=== PATIENT | female | born 1960 | race Caucasian/White ===

== ENCOUNTER 2018-05-28 16:07 | Outpatient (REF) | payer MEDICAID, SELFPAY ==
[2018-05-28 20:15] LABS: Abs Immature Grans 0.03 k/cumm (0.0-0.09); Absolute Basophil Count 0.03 k/cumm (0.0-0.2); Absolute Eosinophil Count 0.09 k/cumm (0.0-0.7); Absolute Lymphocyte Count 1.38 k/cumm (1.2-3.4); Absolute Monocyte Count 0.61 k/cumm (0.11-0.7); Absolute Neutrophil Count 6.14 k/cumm (1.2-6.7); Basophils % 0.4; Eosinophils % 1.1; HCT 35.9 % (36.0-46.0); HGB 12.2 g/dL (12.0-15.5); Immature Grans % 0.4; Lymphocytes % 16.7; Mean Corpuscular Hemoglobin 28.8 pg (27.0-33.0); Mean Corpuscular Volume 84.9 fL (80-95); Mean Platelet Volume 9.4 fL (8.0-11.0); Monocytes % 7.4; Platelet Count 312 x1000/uL (130-400); RBC 4.23 m/cumm (4.00-5.20); RBC Distribution Width 15.4 % (11.7-14.6); White Blood Cell Count 8.28 k/cumm (4.4-10.8)
[2018-05-28 20:51] LABS: Anion Gap 8.3 mmol/L (3-11); BUN 4 mg/dL (7-18); CO2 29.7 mmol/L (21.0-32.0); CREATININE 0.61 mg/dL (0.55-1.02); Calcium 9.6 mg/dL (8.5-10.1); Chloride 93 mmol/L (98-107); Ferritin 108 ng/mL (8-388); Glucose 106 mg/dL (70-100); Potassium 3.9 mmol/L (3.5-5.1); Sodium 131 mmol/L (136-145)
== END 2018-05-28 16:27 ==
LOC: NCHCN 16:07
PROVIDERS: Visit Provider Family Medicine
DX: J44.1 Chronic obstructive pulmonary disease with (acute) exacerbation (principal); E87.1 Hypo-osmolality and hyponatremia; D64.9 Anemia, unspecified
CPT/HCPCS: 80048; 82728; 85025

== ENCOUNTER 2018-06-24 15:14 | Outpatient (REF) | payer MEDICAID, SELFPAY ==
--- NOTE | 2018-06-24 14:30 | PAPFT_PTH ---
PATIENT: YESI MATHEWS [facility] U#:[id number] AGE/SX: 57/F ROOM: RE06/24/[address]: Liliam Briseno : 1960 BED: DIS: 06/24/2018 SPEC #: [id number] RECD: 06/25/18 13:17 STATUS: YULISA REQ #: [id number] RAZIA: 06/24/18 14:[address]: Liliam Briseno DEPT: [facility] Cytology RECD BY: Patricia Laird ENTERED: 06/25/18 13:17 SP TYPE: PAPFT OTHR DR: Scott Carbone Tissues: 1 - CX/ENDOCX FOR PAP SMEARS Procedures: PAP THIN PREP/[facility] Screening HPV DNA PROBE Comments: [id number]
[2018-06-24 22:02] LABS: Anion Gap 9.7 mmol/L (3-11); BUN 4 mg/dL (7-18); CO2 30.3 mmol/L (21.0-32.0); CREATININE 0.68 mg/dL (0.55-1.02); Calcium 9.9 mg/dL (8.5-10.1); Chloride 91 mmol/L (98-107); Cholesterol 203 mg/dL (50-200); Glucose 95 mg/dL (70-100); HDL Cholesterol 86 mg/dL (40-60); LDL CHOLESTEROL 87 mg/dL (<100); Potassium 4.2 mmol/L (3.5-5.1); Sodium 131 mmol/L (136-145); Triglyceride 66 mg/dL (30-150)
== END 2018-06-24 15:34 ==
LOC: NCHCN 15:14
PROVIDERS: Visit Provider Registered Nurse
DX: E87.1 Hypo-osmolality and hyponatremia (principal); Z13.220 Encounter for screening for lipoid disorders; Z12.4 Encounter for screening for malignant neoplasm of cervix; Z11.51 Encounter for screening for human papillomavirus (HPV)
CPT/HCPCS: 80048; 80061; 83721; 88142; 87624

== ENCOUNTER 2018-07-23 12:55 | Outpatient (REF) | payer MEDICAID, SELFPAY ==
[2018-07-23 21:31] LABS: Anion Gap 8.6 mmol/L (3-11); BUN 3 mg/dL (7-18); CO2 29.4 mmol/L (21.0-32.0); CREATININE 0.58 mg/dL (0.55-1.02); Calcium 9.1 mg/dL (8.5-10.1); Chloride 93 mmol/L (98-107); Glucose 91 mg/dL (70-100); Potassium 3.6 mmol/L (3.5-5.1); Sodium 131 mmol/L (136-145)
== END 2018-07-23 13:15 ==
LOC: NCHCN 12:55
PROVIDERS: Visit Provider Registered Nurse
DX: E87.1 Hypo-osmolality and hyponatremia (principal)
CPT/HCPCS: 80048

== ENCOUNTER 2018-08-08 14:29 | Outpatient (REF) | payer MEDICAID, SELFPAY ==
[2018-08-08 21:14] LABS: Anion Gap 9.3 mmol/L (3-11); BUN 3 mg/dL (7-18); CO2 29.7 mmol/L (21.0-32.0); CREATININE 0.71 mg/dL (0.55-1.02); Calcium 9.2 mg/dL (8.5-10.1); Chloride 98 mmol/L (98-107); Glucose 104 mg/dL (70-100); Potassium 3.7 mmol/L (3.5-5.1); Sodium 137 mmol/L (136-145)
== END 2018-08-08 14:49 ==
LOC: NCHCN 14:29
PROVIDERS: Visit Provider Registered Nurse
DX: R60.0 Localized edema (principal)
CPT/HCPCS: 80048

== ENCOUNTER 2019-10-09 13:06 | Outpatient (REF) | payer MEDICAID, SELFPAY ==
[2019-10-09 20:46] LABS: ALT 19 U/L (14-59); AST 23 U/L (15-37); Albumin 2.8 g/dL (3.4-5.0); Alkaline Phosphatase 88 U/L (46-116); Anion Gap 10.5 mmol/L (3-11); BUN 3 mg/dL (7-18); Bilirubin, Total 0.4 mg/dL (0.2-1.0); CO2 26.5 mmol/L (21.0-32.0); CREATININE 0.72 mg/dL (0.55-1.02); Calcium 8.9 mg/dL (8.5-10.1); Chloride 97 mmol/L (98-107); Glucose 98 mg/dL (74-106); Potassium 4.1 mmol/L (3.5-5.1); Sodium 134 mmol/L (136-145); Total Protein 6.4 g/dL (6.4-8.2)
== END 2019-10-09 13:26 ==
LOC: NCHCN 13:06
PROVIDERS: PCP Registered Nurse; Visit Provider Registered Nurse
DX: I10 Essential (primary) hypertension (principal); E87.1 Hypo-osmolality and hyponatremia; E87.6 Hypokalemia
CPT/HCPCS: 80053

== ENCOUNTER 2019-10-16 20:47 | Outpatient (REF) | payer MEDICAID, SELFPAY ==
[2019-10-16 20:55] LABS: Anion Gap 6.2 mmol/L (3-11); BUN 6 mg/dL (7-18); CO2 30.8 mmol/L (21.0-32.0); CREATININE 0.69 mg/dL (0.55-1.02); Calcium 9.5 mg/dL (8.5-10.1); Calculated LDL 136 mg/dL (<100); Chloride 96 mmol/L (98-107); Cholesterol 229 mg/dL (<200); Glucose 87 mg/dL (74-106); HDL Cholesterol 79 mg/dL (40-60); Sodium 133 mmol/L (136-145); Triglyceride 74 mg/dL (<150)
== END 2019-10-16 21:07 ==
LOC: NCHCN 20:47
PROVIDERS: PCP Registered Nurse; Visit Provider Registered Nurse
DX: I10 Essential (primary) hypertension (principal); E66.9 Obesity, unspecified
CPT/HCPCS: 80048; 80061

== ENCOUNTER 2019-12-18 21:46 | Outpatient (REF) | payer MEDICAID, SELFPAY ==
[2019-12-18 20:46] LABS: BUN 10 mg/dL (7-18); CREATININE 0.88 mg/dL (0.55-1.02); Calcium 8.2 mg/dL (8.5-10.1); Chloride 96 mmol/L (98-107); Glucose 129 mg/dL (74-106); Potassium 3.7 mmol/L (3.5-5.1); Sodium 133 mmol/L (136-145)
== END 2019-12-18 22:06 ==
LOC: NCHCN 21:46
PROVIDERS: PCP Registered Nurse; Visit Provider Registered Nurse
DX: E87.1 Hypo-osmolality and hyponatremia (principal)
CPT/HCPCS: 80048

== ENCOUNTER 2020-01-08 20:20 | Outpatient (REF) | payer MEDICAID, SELFPAY ==
[2020-01-08 21:02] LABS: Anion Gap 9.1 mmol/L (3-11); BUN 10 mg/dL (7-18); CO2 30.9 mmol/L (21.0-32.0); CREATININE 0.95 mg/dL (0.55-1.02); Chloride 99 mmol/L (98-107); Glucose 137 mg/dL (74-106); Potassium 3.3 mmol/L (3.5-5.1); Sodium 139 mmol/L (136-145)
== END 2020-01-08 20:40 ==
LOC: NCHCN 20:20
PROVIDERS: PCP Registered Nurse; Visit Provider Registered Nurse
DX: I10 Essential (primary) hypertension (principal)
CPT/HCPCS: 80048

== ENCOUNTER 2020-01-15 14:55 | Outpatient (REF) | payer MEDICAID, SELFPAY ==
[2020-01-15 21:30] LABS: Anion Gap 8.1 mmol/L (3-11); BUN 25 mg/dL (7-18); CO2 28.9 mmol/L (21.0-32.0); CREATININE 1.14 mg/dL (0.55-1.02); Calcium 8.6 mg/dL (8.5-10.1); Chloride 102 mmol/L (98-107); Estimated GFR 48.46 (mL/min/1.73m2); Glucose 78 mg/dL (74-106); Sodium 139 mmol/L (136-145)
== END 2020-01-15 15:15 ==
LOC: NCHCN 14:55
PROVIDERS: PCP Registered Nurse; Visit Provider Registered Nurse
DX: E87.1 Hypo-osmolality and hyponatremia (principal); E87.6 Hypokalemia; I10 Essential (primary) hypertension
CPT/HCPCS: 80048

== ENCOUNTER 2020-01-21 18:00 | Outpatient (REF) | payer MEDICAID, SELFPAY ==
[2020-01-21 22:39] LABS: Anion Gap 7.1 mmol/L (3-11); BUN 25 mg/dL (7-18); CO2 29.9 mmol/L (21.0-32.0); CREATININE 0.95 mg/dL (0.55-1.02); Calcium 8.8 mg/dL (8.5-10.1); Chloride 103 mmol/L (98-107); Glucose 116 mg/dL (74-106); Potassium 3.6 mmol/L (3.5-5.1); Sodium 140 mmol/L (136-145)
[2020-01-21 23:00] LABS: Hemoglobin A1C 5.9 % (<5.7)
== END 2020-01-21 18:20 ==
LOC: NCHCN 18:00
PROVIDERS: PCP Registered Nurse; Visit Provider Registered Nurse
DX: I10 Essential (primary) hypertension (principal); R60.0 Localized edema; E66.9 Obesity, unspecified; Z86.79 Personal history of other diseases of the circulatory system
CPT/HCPCS: 80048; 83036